=== PATIENT | female | born 1975 | race Caucasian/White ===

== ENCOUNTER → 2017-09-04 16:24 | Outpatient (CLI) | payer OTHER, SELFPAY ==
--- NOTE | 2017-09-04 16:27 | HPBI_ITS ---
MAMMOGRAPHY - BILATERAL SCREENING REASON FOR EXAM: Female, 41 years old. Routine annual screening examination. PERTINENT HISTORY: Aunt with breast cancer. TECHNIQUE: Digital bilateral breast bishop (3D mammographic acquisition) in the CC and MLO projections. 2-D mediolateral oblique (MLO) and craniocaudad (CC) views of both breasts were obtained. CAD: Full Field Digital Mammography with Computer Added Detection was performed. COMPARISON: Comparison is made with prior study dated August 19, 2016 and July 29, 2014. FINDINGS: Breast Composition: The breasts are heterogeneously dense, which may obscure small masses. There are no dominant masses or suspicious calcifications. No other significant abnormalities are identified. There has been no significant change since the prior study. HPBI/SCREENING MAMM (CAD), BILAT IMPRESSION: Stable bilateral screening mammogram. Yearly follow-up mammogram recommended. (A) ASSESSMENT CATEGORY: BIRADS Category 1: Negative. A letter regarding these results will be sent to the patient by the facility within 30 days. Approximately 10% of breast cancers are not detected by mammography. A normal mammogram should not delay biopsy of a clinically suspicious abnormality. [id number] Electronically Signed: Tai Chappell MD at 8:08 EST Tel [phone], Service support ,
== END ==
PROVIDERS: Family Provider Family Medicine; PCP Family Medicine; Visit Provider Family Medicine
DX: Z12.31 Encounter for screening mammogram for malignant neoplasm of breast (principal)
CPT/HCPCS: 77063; 77067

== ENCOUNTER → 2017-10-09 13:41 | Outpatient (CLI) | payer OTHER, SELFPAY ==
--- NOTE | 2017-10-09 13:44 | RAD_ITS ---
STUDY: X-RAY - LUMBAR SPINE REASON FOR EXAM: Female, 41 years old. Radiating low back pain TECHNIQUE: 5 view(s) of the lumbar spine were obtained. COMPARISON: None FINDINGS: Normal lumbar lordosis. There is a dextroscoliosis of the lumbar spine. There is a normal alignment of the vertebrae. Normal vertebral bodies and endplates. Normal disc space heights. The soft tissue structures are unremarkable. RAD/L/S Spine Min 4 Views IMPRESSION: No fracture or aggressive osseous lesion Mild dextroscoliosis Electronically Signed: Keith Valentin MD at 14:24 EDT , Service support ,
== END ==
PROVIDERS: Family Provider Family Medicine; PCP Family Medicine; Visit Provider Chiropractor
DX: M99.03 Segmental and somatic dysfunction of lumbar region (principal); M41.86 Other forms of scoliosis, lumbar region
CPT/HCPCS: 72110

== ENCOUNTER 2018-01-02 16:45 | Outpatient (RCR) | payer OTHER, SELFPAY ==
--- NOTE | 2017-11-15 13:07 | MASS.EVAL ---
Massage Therapy Evaluation: Initial Evaluation Date: 11/14/2017 SUBJECTIVE: Mili is a 42 year old female who was referred to the [facility] facility for a massotherapy evaluation by Dr. Chang with the diagnosis of bursitis and thoracic back pain. Mili presents today with the symptoms of some lower back pain and tension. She reports she is currently receiving chiropractic visits for her hips and back. She reports having minimal limitations during her daily activities. OBJECTIVE: Upon observation Mili has poor posture with her head forward and shoulders forward from the neutral position in sitting and standing. After examination and palpation I found Kezia to have very high muscle tension with tenderness in her sub occipitals, trapezius, rhomboids, scalenes, thoracic paraspinals. Her hips and lumbar region were also tight. The first treatment consisted of a one hour massage to her upper body with myofascial release, muscle stripping, trigger point compression techniques, and cervical manual traction. ASSESSMENT: I feel that she is a good candidate for massotherapy at this time. She had a favorable response to the first treatment with reduction in her muscle aches, pain and tension. She also had improvement in her low back stiffness. PLAN: The plan of care was reviewed with the patient. The patient is to be seen on as needed basis for a total of ten sessions with the recommendation of once every four weeks for a one hour treatment. Rita Dill LMT
--- NOTE | 2018-07-05 11:35 | MASS.DISCH ---
Massage Therapy Discharge Summary: Initial Evaluation: Diagnosis: Back pain Bursitis No. of Visits: Date of last visit: 01/02/2018 This patient is being discharged from our care at the [facility]. Thank you, Jenifer Becerra LMT
== END 2018-01-02 19:00 | disposition home or self-care (01) ==
LOC: MASS 16:45
PROVIDERS: Family Provider Family Medicine; PCP Family Medicine; Visit Provider Family Medicine
DX: M54.6 Pain in thoracic spine (principal); M20.62 Acquired deformities of toe(s), unspecified, left foot
CPT/HCPCS: 97124

== ENCOUNTER → 2018-11-06 13:32 | Outpatient (CLI) | payer OTHER, SELFPAY ==
--- NOTE | 2018-11-06 13:35 | BI_ITS ---
MAMMOGRAPHY - BILATERAL SCREENING 3-D TOMOSYNTHESIS REASON FOR EXAM: Female, 42 years old. Bilateral Screening 3-D tomosynthesis PERTINENT HISTORY: No significant family history. TECHNIQUE: 2-D mammograms and 3-D Tomosynthesis of the breast (s) were performed. CAD was performed. COMPARISON: September 04, 2017. FINDINGS: The breast composition is heterogeneously dense, which may obscure small masses. Scattered benign calcifications are seen. No dense spiculated masses or suspicious microcalcifications are identified. No architectural distortion is identified. There is no skin thickening or retraction. There has been no significant change since the prior study. BI/SCREENING MAMM (CAD), BILAT IMPRESSION: No mammographic signs of malignancy. Routine yearly mammograms recommended. ASSESSMENT CATEGORY: BIRADS Category 2: Benign. A letter regarding these results will be sent to the patient by the facility within 30 days. FOLLOW UP RECOMMENDATION: Yearly follow up mammogram recommended. (A) Approximately 10% of breast cancers are not detected by mammography. A normal mammogram should not delay biopsy of a clinically suspicious abnormality. Electronically Signed: Jacobo Small MD at 15:36 EDT , Service support ,
== END ==
PROVIDERS: Family Provider Family Medicine; PCP Family Medicine; Referring Provider Family Medicine; Visit Provider Family Medicine
DX: Z12.31 Encounter for screening mammogram for malignant neoplasm of breast (principal)
CPT/HCPCS: 77063; 77067

== ENCOUNTER → 2019-01-16 07:06 | Outpatient (CLI) | payer OTHER, SELFPAY ==
[2019-01-16 08:13] LABS: Estradiol 24.3 pg/mL; Follicle Stimulating Hormone 41.7 mIU/mL; Luteinizing Hormone 14.6 mIU/mL; Prolactin 5.3 ng/mL
[2019-01-16 08:47] LABS: Progesterone Level 0.24 ng/mL (See Comment)
== END ==
PROVIDERS: Family Provider Family Medicine; PCP Family Medicine; Referring Provider Family Medicine; Visit Provider Family Medicine
DX: N64.4 Mastodynia (principal); N92.0 Excessive and frequent menstruation with regular cycle
CPT/HCPCS: 36415; 82670; 83001; 83002; 84144; 84146

== ENCOUNTER → 2019-01-30 10:44 | Outpatient (CLI) | payer OTHER, SELFPAY ==
[2019-01-30 12:48] LABS: Hepatitis B Surface Antibody Reactive; Rubella IgG 88.1 IU/mL
[2019-02-01 11:26] LABS: Mumps Antibody,IgG 21.6 AU/mL (Immune >10.9); Rubeola IgG Ab 62.5 AU/mL (Immune >29.9); V-Zoster IgG (Immunity) 341 index (Immune >165)
== END ==
PROVIDERS: Family Provider Family Medicine; PCP Family Medicine; Referring Provider Family Medicine; Visit Provider Family Medicine
DX: Z92.29 Personal history of other drug therapy (principal)
CPT/HCPCS: 36415; 86706; 86735; 86762; 86765; 86787

== ENCOUNTER 2019-12-17 12:17 | Emergency (ER) | payer OTHER, SELFPAY ==
[2019-12-17 12:18] VITALS: BP 125/95; PULSE 94; RESP 15; TEMP 36.6; O2SAT 98; BMI 24.3
--- NOTE | 2019-12-17 12:34 | EKG12_ITS ---
Test Reason : SYNCOPE Blood Pressure : / mmHG Vent. Rate : 084 BPM Atrial Rate : 084 BPM P-R Int : 154 ms QRS Dur : 080 ms QT Int : 378 ms P-R-T Axes : 076 056 060 degrees QTc Int : 446 ms Normal sinus rhythm Normal ECG Confirmed by JENNIFER PORTILLO, HIRA ([id number]), film editor supervisor MYKEL HESS ([id number]) on 12/19/2019 10:42:03 AM Referred By: SHANAE Confirmed By:HIRA RODRIGUEZ MD
--- NOTE | 2019-12-17 12:38 | NURSING ---
NO OLD EKGS
--- NOTE | 2019-12-17 13:00 | ED.DCSUM_ITS ---
History of Present Illness Chief Complaint: Syncope Informant: Patient Onset: Today Narrative: Patient is a 44-year-old female with history of GERD presenting after presyncopal episode at work. Patient works as a home health aide. She states she felt lightheaded after giving her patient a shower and sat down. She started to feel better but then when she was walking out of the house she felt lightheaded again starting to tunnel vision and fell to the ground. She states she remembers following a did not actually lose consciousness. She not hit her head. She notes that she was in the sun and actually was sunburned yesterday. She states for the past 2 weeks has had 2 other episodes when she has been working in her garden when she is felt lightheaded and had to sit down. Is the first time she is had a fall though. Patient states she started to feel better now and does not feel dizzy. She denies any room spinning sensation. She denies associated chest pain, shortness of breath or difficulty breathing. She denies any history of DVT or PE. She is not on any hormonal therapy. She states she is premenopausal so she has irregular menstrual cycles. Patient denies any GI or symptoms. Past Medical History - Allergies and Home Meds Allergies/Adverse Reactions: Allergies venom-honey bee [bee venom (honey bee)] Allergy (Verified 12/17/19 12:18) Swelling Primary Care Physician: Juanito Chang MD [Primary Care Provider] - Past Medical History: - - GERD Surgical History: noncontributory Smoking Status: Never smoker Review of Systems General: Reports: - - Lightheaded. Denies: Chills, Fever, Sweats Eyes: Denies: Visual changes - bilaterally, Diplopia ENT: Denies: Rhinorrhea, Sore throat Cardiovascular: Denies: Chest pain, Palpitations Respiratory: Denies: Dyspnea, Cough, Dyspnea on exertion Gastrointestinal: Denies: Abdominal pain, Nausea, Vomiting, Diarrhea, Melena, Hematochezia Genitourinary: Denies: Dysuria, Hematuria, Frequency Musculoskeletal: Denies: Back pain, Extremity Pain Skin: Denies: Rash, Wounds Neurological: Denies: Headache, Weakness, Numbness Physical Exam Vital Signs/Narrative: Vital Signs Temp Pulse Resp BP Pulse Ox 12/17/19 12:18 97.8 F 94 15 125/95 H 98 Inital Vital Signs reviewed: Yes General: Well nourished, Well developed, No Acute Distress Head: Normocephalic, Atraumatic Eyes: Perrl, EOMI ENT: Moist mucous membranes, No rhinorrhea, TM's clear Neck: Supple, Nontender, No JVD Cardiovascular: Regular rate, Regular rhythm, No murmurs Respiratory: No distress, CTA bilaterally, Chest nontender Abdomen: Soft, Nontender, Nondistended, Normal bowel sounds Back: Nontender, Normal Inspection Extremities: Nontender, No edema Skin: Normal color, No rash, - - mild Sunburn on the upper chest and arms. Negative for: Pallor Neurological: Alert, Oriented x3, Cranial nerves II-XII grossly intact, Normal Strength, Normal Sensation Psychological: Normal affect, Normal Mood Diagnostic/Tx/Re-eval Chest X-Ray - ED: 2 View, Read by ED Physician, Read by Radiologist, No Acute Disease Clinical Impression(s) from Imaging Studies Chest X-Ray 12/17/19 13:11 IMPRESSION: Normal x-ray examination of the chest. Electronically Signed: Tai Ta, at 13:26 EDT , Service support , Laboratory Data 12/17/19 12/17/19 12/17/19 12:55 12:55 12:55 WBC 14.1 H RBC 4.78 Hgb 14.2 Hct 43.6 MCV 91.2 MCH 29.7 MCHC 32.6 RDW Std Deviation 40.6 RDW Coeff of Sudhir 12.1 Plt Count 229 MPV 12.4 H Immature Gran % (Auto) 0.500 Neut % (Auto) 81.9 H Lymph % (Auto) 10.4 L Branch % (Auto) 6.5 Eos % (Auto) 0.3 Baso % (Auto) 0.4 Absolute Neuts (auto) 11.5 H Absolute Lymphs (auto) 1.47 Nucleated RBC % 0 Sodium 138 Potassium 3.5 Chloride 99 Carbon Dioxide 29.0 Anion Gap 10 BUN 15 Creatinine 0.85 Estim Creat Clear Calc 71.41 Est GFR (MDRD) Af Amer 92 Est GFR (MDRD) Non-Af 76 BUN/Creatinine Ratio 17.6 Glucose 105 Calcium 9.5 Troponin I < 0.015 Urine Color Urine Clarity Urine pH Ur Specific [place] Urine Protein Urine Glucose (UA) Urine Ketones Urine Occult Blood Urine Nitrite Urine Bilirubin Urine Urobilinogen Ur Leukocyte Esterase Urine RBC Urine WBC Ur Squamous Epith Cells Urine Bacteria Urine Mucus Urine Test Negative 12/17/19 12:55 WBC RBC Hgb Hct MCV MCH MCHC RDW Std Deviation RDW Coeff of Sudhir Plt Count MPV Immature Gran % (Auto) Neut % (Auto) Lymph % (Auto) Branch % (Auto) Eos % (Auto) Baso % (Auto) Absolute Neuts (auto) Absolute Lymphs (auto) Nucleated RBC % Sodium Potassium Chloride Carbon Dioxide Anion Gap BUN Creatinine Estim Creat Clear Calc Est GFR (MDRD) Af Amer Est GFR (MDRD) Non-Af BUN/Creatinine Ratio Glucose Calcium Troponin I Urine Color Yellow Urine Clarity Clear Urine pH 5.0 Ur Specific [place] 1.020 Urine Protein 30 H Urine Glucose (UA) Normal Urine Ketones 5 H Urine Occult Blood 25 H Urine Nitrite Negative Urine Bilirubin 1 H Urine Urobilinogen Normal Ur Leukocyte Esterase 25 H Urine RBC 0 SEEN Urine WBC 0-5 SEEN Ur Squamous Epith Cells 5-10 SEEN Urine Bacteria RARE Urine Mucus 2+ Urine Test - Rhythm Strip Rhythm Strip: Sinus Rhythm Rate: 84 Ectopy: None - EKG Initial EKG Interpretation: Sinus Rhythm, - - Normal sinus rhythm at a rate of 84 Normal intervals Normal axis Normal ST segments - Medical Decision Making She is evaluated after an episode of presyncope. Since patient did not lose consciousness and was able to control her fall I do not think it was a true syncopal episode. She had significant sun exposure yesterday and is otherwise well-appearing. She does not have any medical history. She is PE RC negative and I do not suspect a PE as a cause of her symptoms. EKG is normal as well as her troponin. Chest x-rays not show any acute process. She not having significant electrolyte abnormalities and has a normal hemoglobin and platelets. She does have a mild leukocytosis but do not have a source of infection.Urinalysis shows 25 leukoesterase however is contaminated with squamous cells and does not shows rare bacteria. There is 0-5 white blood cells. I do not suspect UTI. Patient will be discharged home after IV fluids. She did have ketones in her urine. She is orthostatic negative however. She discharged to follow-up with her primary care doctor. She is cleared to return to work from my standpoint. Patient is counseled on signs and symptoms requiring return to the emergency room. Patient verbalizes agreement and understand this plan. Patient discharged home in stable and improved condition. ED Disposition - Plan for ED Patient: Disposition: Home or Assisted Living Diagnosis: Syncope Instructions: ED Near Syncope Vasovagal Referrals: Juanito Chang MD [Primary Care Provider] -
[2019-12-17 13:02] VITALS: BP 105/80; BP 113/80; BP 116/83; PULSE 76; PULSE 84; PULSE 95
[2019-12-17 13:03] LABS: Red Blood Cells-Urine 0 SEEN /hpf (0-5)
[2019-12-17 13:05] LABS: Absolute Lymphocyte Count 1.47 X10^3/uL (0.83-4.51); Absolute Neutrophil Count 11.5 X10^3/uL (2.0-7.7); Basophil# 0.05 X10^3/uL; Basophil% 0.4 % (0-1); Eosinophil# 0.04 X10^3/uL; Eosinophils% 0.3 % (0-5); Hematocrit 43.6 % (37-47); Hemoglobin 14.2 g/dL (12.0-15.0); Lymphocyte # 1.47 X10^3/ul (4.0); Lymphocyte % 10.4 % (19-41); Mean Corp Hgb Conc 32.6 g/dL (32-36); Mean Corpuscular Hgb 29.7 pg (27.0-32.0); Mean Corpuscular Volume 91.2 fL (81-99); Mean Platelet Vol. 12.4 fl (6.2-12.0); Monocyte# 0.92 X10^3/uL; Monocyte% 6.5 % (0-10); NRBC Flagged by Analyzer 0 % (0-5); Neutrophil # 11.53 X10^3/uL (2.7-7.7); Neutrophil % 81.9 % (47-70); Platelet Count 229 K/mm3 (150-450); RBC Distribution Width CV 12.1 % (11.6-14.6); RBC Distribution Width SD 40.6 fl (35.1-43.9); Red Blood Count 4.78 M/mm3 (4.2-5.4); White Blood Count 14.1 K/mm3 (4.4-11.0)
[2019-12-17 13:07] LABS: Color, Urine Yellow (Yellow); Glucose, Dipstick Normal (Normal); Ketone-Dipstick 5 mg/dl (Negative); Leukocyte Esterase-Dipstick 25 /ul (Negative); Nitrite-Dipstick Negative (Negative); Occult Blood-Urine 25 /ul (Negative); Protein-Dipstick 30 mg/dl (Negative); Urine Clarity Clear (Clear); Urine Urobilinogen Normal (Normal)
[2019-12-17 13:10] LABS: Internal QC Validated? YES +Cl - CLEAR BKGD; Pregnancy, Urine Negative Negative
[2019-12-17 13:11] LABS: Urine Bilirubin Dipstick 1 mg/dL (Negative)
--- NOTE | 2019-12-17 13:11 | RAD_ITS ---
STUDY: X-RAY CHEST REASON FOR EXAM: Female, 44 years old. Syncope TECHNIQUE: PA and lateral views of the chest. COMPARISON: None. FINDINGS: EKG electrodes are seen. The lungs are clear and expanded. Scattered calcified granulomas. There is no demonstrated pleural abnormality. Normal size heart. Normal mediastinum and stepan. Normal visualized pulmonary arteries. Normal visualized aortic arch and descending thoracic aorta. Normal visualized thoracic spine. Normal visualized ribs, clavicles, and shoulders. There is no demonstrated abnormality of the visualized soft tissue structures of the upper abdomen. RAD/Chest PA and Lateral IMPRESSION: Normal x-ray examination of the chest. Electronically Signed: Tai Chappell, at 13:26 EDT , Service support ,
[2019-12-17 13:18] LABS: White Blood Cells 0-5 SEEN /hpf (0-5)
[2019-12-17 13:19] LABS: Bacteria RARE /hpf (None Seen); Mucous, Urine 2+ /hpf (<or=2+); Squamous Epithelial Cells - UA 5-10 SEEN /hpf (5-10)
[2019-12-17 13:22] LABS: Anion Gap 10 (5-15); BUN 15 mg/dL (7-18); BUN/Creat Ratio 17.6 RATIO (10-20); Calcium,Total 9.5 mg/dL (8.5-10.1); Chloride 99 mmol/L (98-107); Creatinine, Serum 0.85 mg/dL (0.55-1.02); EST Glomerular Filtration Rate 76 mL/min (>60); Est Glom Filt Rate - Afr Amer 92 mL/min (>60); Estimated Creatinine Clearance 71.41 ml/min; Glucose 105 mg/dL (74-106); Potassium 3.5 mmol/L (3.5-5.1); Sodium Level 138 mmol/L (136-145)
[2019-12-17 14:11] VITALS: BP 109/76; PULSE 84; RESP 14; O2SAT 99
== END 2019-12-17 14:19 | disposition home or self-care (01) ==
PROVIDERS: Emergency Provider Emergency Medicine; PCP Family Medicine
DX: R55 Syncope and collapse (principal); K21.9 Gastro-esophageal reflux disease without esophagitis
CPT/HCPCS: 71046; 80048; 81001; 81025; 84484; 85025; 93005; 99285; A4216

== ENCOUNTER 2020-04-13 11:58 | Outpatient (RCR) | payer MEDICARE, SELFPAY ==
[2020-03-24 16:41] VITALS: BMI 24.3
== END 2020-04-13 12:00 | disposition home or self-care (01) ==
LOC: EMPH 11:58
PROVIDERS: Referring Provider Family Medicine Geriatric Medicine; Visit Provider Family Medicine Geriatric Medicine
DX: Z11.59 Encounter for screening for other viral diseases (principal)
CPT/HCPCS: 87635; U0003

== ENCOUNTER 2020-05-14 08:22 | Outpatient (RCR) | payer MEDICARE, SELFPAY ==
[2020-03-24 16:41] VITALS: BMI 24.3
== END 2020-05-16 23:59 ==
LOC: EMPH 08:22
PROVIDERS: Referring Provider Family Medicine Geriatric Medicine; Visit Provider Family Medicine Geriatric Medicine
DX: Z03.818 Encounter for observation for suspected exposure to other biological agents ruled out (principal)
CPT/HCPCS: 87426

== ENCOUNTER 2020-06-10 15:56 | Outpatient (RCR) | payer OTHER, SELFPAY ==
[2020-03-24 16:41] VITALS: BMI 24.3
== END 2020-06-15 23:59 ==
LOC: EMPH 15:56
PROVIDERS: Referring Provider Family Medicine Geriatric Medicine; Visit Provider Family Medicine Geriatric Medicine
DX: Z03.818 Encounter for observation for suspected exposure to other biological agents ruled out (principal)
CPT/HCPCS: 87426

== ENCOUNTER 2020-07-15 14:04 | Outpatient (RCR) | payer OTHER, SELFPAY ==
[2020-03-24 16:41] VITALS: BMI 24.3
== END 2020-07-16 23:59 ==
LOC: EMPH 14:04
PROVIDERS: Referring Provider Family Medicine Geriatric Medicine; Visit Provider Family Medicine Geriatric Medicine
DX: Z03.818 Encounter for observation for suspected exposure to other biological agents ruled out (principal)
CPT/HCPCS: 87426

== ENCOUNTER 2020-08-14 14:17 | Outpatient (RCR) | payer OTHER, SELFPAY ==
[2020-03-24 16:41] VITALS: BMI 24.3
== END 2020-08-16 23:59 ==
LOC: EMPH 14:17
PROVIDERS: Referring Provider Family Medicine Geriatric Medicine; Visit Provider Family Medicine Geriatric Medicine
DX: Z03.818 Encounter for observation for suspected exposure to other biological agents ruled out (principal)
CPT/HCPCS: 87426

== ENCOUNTER 2020-09-11 14:44 | Outpatient (RCR) | payer OTHER, SELFPAY ==
[2020-03-24 16:41] VITALS: BMI 24.3
== END 2020-09-13 23:59 ==
LOC: EMPH 14:44
PROVIDERS: Referring Provider Family Medicine Geriatric Medicine; Visit Provider Family Medicine Geriatric Medicine
DX: Z03.818 Encounter for observation for suspected exposure to other biological agents ruled out (principal)
CPT/HCPCS: 87426

== ENCOUNTER 2020-10-07 14:05 | Outpatient (RCR) | payer OTHER, SELFPAY ==
[2020-03-24 16:41] VITALS: BMI 24.3
== END 2020-10-14 23:59 ==
LOC: EMPH 14:05
PROVIDERS: Referring Provider Family Medicine Geriatric Medicine; Visit Provider Family Medicine Geriatric Medicine
DX: Z03.818 Encounter for observation for suspected exposure to other biological agents ruled out (principal)
CPT/HCPCS: 87426

== ENCOUNTER 2020-11-13 13:54 | Outpatient (RCR) | payer OTHER, SELFPAY ==
[2020-03-24 16:41] VITALS: BMI 24.3
== END 2020-11-13 23:59 ==
LOC: EMPH 13:54
PROVIDERS: Referring Provider Family Medicine Geriatric Medicine; Visit Provider Family Medicine Geriatric Medicine
DX: Z03.818 Encounter for observation for suspected exposure to other biological agents ruled out (principal)
CPT/HCPCS: 87426

== ENCOUNTER 2020-12-08 13:41 | Outpatient (RCR) | payer OTHER, SELFPAY ==
[2020-03-24 16:41] VITALS: BMI 24.3
== END 2020-12-14 23:59 ==
LOC: EMPH 13:41
PROVIDERS: Referring Provider Family Medicine Geriatric Medicine; Visit Provider Family Medicine Geriatric Medicine
DX: Z03.818 Encounter for observation for suspected exposure to other biological agents ruled out (principal)
CPT/HCPCS: 87426

== ENCOUNTER 2021-01-12 10:58 | Outpatient (RCR) | payer OTHER, SELFPAY ==
[2020-03-24 16:41] VITALS: BMI 24.3
== END 2021-01-13 23:59 ==
LOC: EMPH 10:58
PROVIDERS: PCP Family Medicine; Referring Provider Family Medicine Geriatric Medicine; Visit Provider Family Medicine Geriatric Medicine
DX: Z03.818 Encounter for observation for suspected exposure to other biological agents ruled out (principal)
CPT/HCPCS: 87426

== ENCOUNTER 2021-02-12 13:00 | Outpatient (RCR) | payer OTHER, SELFPAY ==
[2020-03-24 16:41] VITALS: BMI 24.3
== END 2021-02-12 16:00 | disposition home or self-care (01) ==
LOC: EMPH 13:00
PROVIDERS: PCP Family Medicine; Referring Provider Family Medicine Geriatric Medicine; Visit Provider Family Medicine Geriatric Medicine
DX: Z03.818 Encounter for observation for suspected exposure to other biological agents ruled out (principal)
CPT/HCPCS: 87426

== ENCOUNTER 2021-03-16 12:08 | Outpatient (RCR) | payer OTHER, SELFPAY ==
[2020-03-24 16:41] VITALS: BMI 24.3
== END 2021-03-16 23:59 ==
LOC: EMPH 12:08
PROVIDERS: PCP Family Medicine; Referring Provider Family Medicine Geriatric Medicine; Visit Provider Family Medicine Geriatric Medicine
DX: Z03.818 Encounter for observation for suspected exposure to other biological agents ruled out (principal)
CPT/HCPCS: 87426

== ENCOUNTER 2021-04-15 13:09 | Outpatient (RCR) | payer OTHER, SELFPAY ==
[2021-03-17 00:29] VITALS: BMI 24.3
== END 2021-04-15 23:59 ==
LOC: EMPH 13:09
PROVIDERS: PCP Family Medicine; Referring Provider Family Medicine Geriatric Medicine; Visit Provider Family Medicine Geriatric Medicine
DX: Z03.818 Encounter for observation for suspected exposure to other biological agents ruled out (principal)
CPT/HCPCS: 87426

== ENCOUNTER 2021-05-27 14:38 | Outpatient (RCR) | payer OTHER, SELFPAY ==
[2021-05-17 00:19] VITALS: BMI 24.3
== END 2021-06-15 23:59 ==
LOC: EMPH 14:38
PROVIDERS: PCP Family Medicine; Referring Provider Family Medicine Geriatric Medicine; Visit Provider Family Medicine Geriatric Medicine
DX: Z03.818 Encounter for observation for suspected exposure to other biological agents ruled out (principal)
CPT/HCPCS: 87426

== ENCOUNTER 2021-07-15 15:16 | Outpatient (RCR) | payer OTHER, SELFPAY ==
[2021-06-16 00:24] VITALS: BMI 24.3
== END 2021-07-16 23:59 ==
LOC: EMPH 15:16
PROVIDERS: PCP Family Medicine; Referring Provider Family Medicine Geriatric Medicine; Visit Provider Family Medicine Geriatric Medicine
DX: Z03.818 Encounter for observation for suspected exposure to other biological agents ruled out (principal)
CPT/HCPCS: 87426; 87635; U0003; U0005

== ENCOUNTER 2021-08-30 14:01 | Outpatient (RCR) | payer OTHER, SELFPAY ==
[2021-07-17 00:23] VITALS: BMI 24.3
== END 2021-09-13 23:59 ==
LOC: EMPH 14:01
PROVIDERS: PCP Family Medicine; Referring Provider Family Medicine Geriatric Medicine; Visit Provider Family Medicine Geriatric Medicine
DX: Z03.818 Encounter for observation for suspected exposure to other biological agents ruled out (principal)
CPT/HCPCS: 87426

== ENCOUNTER → 2022-03-04 | Outpatient (CLI) | payer OTHER, SELFPAY ==
--- NOTE | 2022-03-04 08:20 | BI_ITS ---
MAMMOGRAPHY - BILATERAL SCREENING REASON FOR EXAM: Female, 46 years old. Routine annual screening examination. PERTINENT HISTORY: Non-contributory. TECHNIQUE: Digital bilateral breast carlos (3D mammographic acquisition) in the CC and MLO projections. 2-D mediolateral oblique (MLO) and craniocaudad (CC) views of both breasts were obtained. CAD: Full Field Digital Mammography with Computer Added Detection was performed. COMPARISON: Comparison is made with prior study dated 11/06/2018 and 09/04/2017. FINDINGS: Breast Composition: The breasts are heterogeneously dense, which may obscure small masses. There are no dominant masses or suspicious calcifications. Small benign-appearing right axillary lymph nodes. No other significant abnormalities are identified. There has been no significant change since the prior study. BI/SCRN MAMM (CAD)W/CARLOS BILAT IMPRESSION: Stable bilateral screening mammogram. Yearly follow-up mammogram recommended. (A) ASSESSMENT CATEGORY: BIRADS Category 2: Benign. A letter regarding these results will be sent to the patient by the facility within 30 days. Approximately 10% of breast cancers are not detected by mammography. A normal mammogram should not delay biopsy of a clinically suspicious abnormality. [id number] Electronically Signed: Tai Chappell MD at 9:17 EDT ,
== END | disposition home or self-care (01) ==
PROVIDERS: PCP Family Medicine; Visit Provider Family Medicine
DX: Z12.31 Encounter for screening mammogram for malignant neoplasm of breast (principal)
CPT/HCPCS: 77063; 77067

== ENCOUNTER → 2023-04-27 | Outpatient (CLI) | payer OTHER, SELFPAY ==
--- NOTE | 2023-04-27 14:05 | BI_ITS ---
MAMMOGRAPHY - BILATERAL SCREENING REASON FOR EXAM: Female, 47 years old. Routine annual screening examination. PERTINENT HISTORY: Non-contributory. TECHNIQUE: Digital bilateral breast carlos (3D mammographic acquisition) in the CC and MLO projections. 2-D mediolateral oblique (MLO) and craniocaudad (CC) views of both breasts were obtained. CAD: Full Field Digital Mammography with Computer Added Detection was performed. COMPARISON: Comparison is made with prior study dated March 04, 2022 and November 06, 2018. FINDINGS: Breast Composition: The breasts are heterogeneously dense, which may obscure small masses. There are no dominant masses or suspicious calcifications. Stable small benign-appearing bilateral axillary lymph nodes. No other significant abnormalities are identified. There has been no significant change since the prior study. BI/SCRN MAMM (CAD)W/CARLOS BILAT IMPRESSION: Stable bilateral screening mammogram. Yearly follow-up mammogram recommended. (A) ASSESSMENT CATEGORY: BIRADS Category 2: Benign. A letter regarding these results will be sent to the patient by the facility within 30 days. Approximately 10% of breast cancers are not detected by mammography. A normal mammogram should not delay biopsy of a clinically suspicious abnormality. [id number] Electronically Signed: Tai Chappell MD at 15:04 EDT ,
== END | disposition home or self-care (01) ==
LOC: OPBI 14:04
PROVIDERS: PCP Family Medicine; Referring Provider Family Medicine; Visit Provider Family Medicine
DX: Z12.31 Encounter for screening mammogram for malignant neoplasm of breast (principal)
CPT/HCPCS: 77063; 77067

== ENCOUNTER → 2023-06-05 | Outpatient (CLI) | payer OTHER, SELFPAY ==
[2023-06-05 09:03] LABS: AST(SGOT) 22 U/L (15-37); Alanine Aminotransfer ALT/SGPT 28 U/L (13-56); Cholesterol 153 mg/dL (200); High Density Lipoprotein 78 mg/dL; Triglycerides 88 mg/dL; Very Low Density Lipoprotein 18 mg/dL (5-40)
== END | disposition home or self-care (01) ==
LOC: LAB 07:37
PROVIDERS: PCP Family Medicine; Referring Provider Family Medicine; Visit Provider Family Medicine
DX: E78.00 Pure hypercholesterolemia, unspecified (principal)
CPT/HCPCS: 36415; 80061; 84450; 84460

== ENCOUNTER → 2024-05-13 | Outpatient (CLI) | payer OTHER, SELFPAY ==
--- NOTE | 2024-05-13 15:15 | RAD_ITS ---
INDICATION: LEFT SCIATICA EXAMINATION/TECHNIQUE: X-RAY - XR Spine Lumbar Min 4 Views COMPARISON: Prior study dated: 10/09/2017 FINDINGS: VERTEBRAE: Preserved vertebral body height. No fracture. No spondylolisthesis. Preservation of the normal lumbar lordosis. Spina bifida at L5. DISCS: Mild narrowing of L3-4 disc space. INCLUDED ABDOMEN: Included bowel gas pattern is non-obstructive. RAD/L/S Spine Min 4 Views IMPRESSION: Mild narrowing of L3-L4 disc space. Electronically Signed: Tim Lubin MD at 12:20 EDT ,
== END | disposition home or self-care (01) ==
LOC: RAD 15:08
PROVIDERS: PCP Family Medicine; Referring Provider Family Medicine; Visit Provider Family Medicine
DX: M54.32 Sciatica, left side (principal)
CPT/HCPCS: 72110

== ENCOUNTER → 2024-05-13 | Outpatient (CLI) | payer OTHER, SELFPAY ==
--- NOTE | 2024-05-13 14:41 | BI_ITS ---
MAMMOGRAPHY - BILATERAL SCREENING REASON FOR EXAM: Female, 48 years old. Routine annual screening examination. PERTINENT HISTORY: Non-contributory. TECHNIQUE: Digital bilateral breast carlos (3D mammographic acquisition) in the CC and MLO projections. 2-D mediolateral oblique (MLO) and craniocaudad (CC) views of both breasts were obtained. CAD: Full Field Digital Mammography with Computer Added Detection was performed. COMPARISON: Comparison is made with prior study April 27, 2023 and March 04, 2022. FINDINGS: Breast Composition: The breasts are heterogeneously dense, which may obscure small masses. There are no dominant masses or suspicious calcifications. Stable small bilateral axillary lymph nodes. No other significant abnormalities are identified. There has been no significant change since the prior study. BI/SCRN MAMM (CAD)W/CARLOS BILAT IMPRESSION: Stable bilateral screening mammogram. Yearly follow-up mammogram recommended. (A) ASSESSMENT CATEGORY: BIRADS Category 2: Benign. A letter regarding these results will be sent to the patient by the facility within 30 days. Approximately 10% of breast cancers are not detected by mammography. A normal mammogram should not delay biopsy of a clinically suspicious abnormality. [id number] Electronically Signed: Tai Chappell MD at 15:29 EDT ,
== END | disposition home or self-care (01) ==
LOC: OPBI 14:39
PROVIDERS: PCP Family Medicine; Referring Provider Family Medicine; Visit Provider Family Medicine
DX: Z12.31 Encounter for screening mammogram for malignant neoplasm of breast (principal)
CPT/HCPCS: 77063; 77067

== ENCOUNTER → 2024-06-27 | Outpatient (CLI) | payer OTHER, SELFPAY ==
--- NOTE | 2024-06-27 13:25 | BD_ITS ---
STUDY: DUAL ENERGY X-RAY ABSORPTIOMETRY / DXA REASON FOR EXAM: Female, 48 years old. [id number] TECHNIQUE: Bone Mineral Density (BMD) measurements of lumbar spine and bilateral hips were obtained. COMPARISON: None. FINDINGS: Lumbar Spine (L1-L4): g/cm2 (0.910) / T-score (-1.2) / Z-score (-0.5) Findings are suggestive of osteopenia with a low fracture risk. Left Femur Total: g/cm2 (0.765) / T-score (-1.5) / Z-score (-1.0) Left Femoral Neck: g/cm2 (0.658) / T-score (-1.7) / Z-score (-0.9) Right Femur Total: g/cm2 (0.773) / T-score (-1.4) / Z-score (-0.9) Right Femoral Neck: g/cm2 (0.641) / T-score (-1.9) / Z-score (-1.1) BD/Dexa Bone Density Study IMPRESSION: The patient is considered osteopenic as outlined below according to World Roman Organization (WHO) criteria with a moderate fracture risk. Reference Information: The T-score is the number of standard deviations above or below the standard which is normal for young adults at their peak bone mineral density. The World Health Organization (WHO) interprets the T-scores as follows: Above -1 Normal bone density Between -1 and -2.5 Osteopenia Equal to / or below -2.5 Osteoporosis As a practical clinical guideline, osteopenia may be graded as follows: Mild -1 through -1.5 Moderate -1.6 through -2.0 Severe -2.1 through -2.4 The Z-score is the number of standard deviations above or below age-matched controls. A Z-score of less than -1.5 would be considered abnormal. References: 1. NIH Osteoporosis and Related Bone Diseases www osteo.org 2. International Society for Clinical Densitometry www iscd.org 3. National Osteoporosis Foundation www nof.org Electronically Signed: Tai Chappell MD at 10:28 EST ,
== END | disposition home or self-care (01) ==
LOC: OPBD 13:23
PROVIDERS: PCP Family Medicine; Referring Provider Family Medicine; Visit Provider Family Medicine
DX: Z78.0 Asymptomatic menopausal state (principal)
CPT/HCPCS: 77080

== ENCOUNTER 2024-07-02 17:00 | Outpatient (RCR) | payer OTHER, SELFPAY ==
--- NOTE | 2024-06-06 14:44 | HP.PTEVAL_ITS ---
Patient's Visit Information Visit Information Visit Information: ADRIÁN CAROLINA is a 48 year old F referred to Physical Therapy by Dr. Juanito Chang MD with a diagnosis of L sided sciatica. Date of Evaluation: 06/06/24 Physical Therapist: Lalo Cosby, DPT, OCS, CSCS Visit Plan Frequency: 2x /Week Duration: 4-6 Weeks Plan: 2x/week for 4-6 weeks as needed(start 3): IE: taugth ppu 8x /day and itb stretch 30 5x daily and activity modifcaiton adn posture... avoid left sidelying use pillow between knees always use a towel roll when sitting minimize sitting keep back moving if have to sit long time Treat with : PPU and Katya ext progression, PA mobs to lower lumbar, core and postural strength to HEP, LB ROM progression to yoga stretches, HS stretch May use TENS and ice if flared up. Subjective Subjective: Pain L hip down to toes and tingly. Intermittently. present for a couple years. Sitting is the biggest problems and then trying to get up. Driving to [employer] is miserable. has bursitis in L hip also. Tylenol now and then. Now has script for baclofen and pain. Sometimes it is not a problem. 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 LB hurts also sometimes. Bending the wrong way flares it up. Needs to bend at knees instead of back. Basic aDLs all I No regular ex except walking dog which she can do unless flared up then would not walk the dog. Hobbies: gardening but can be worse, used raise bed this year.. Camping and is able to do that. Sleeping: wakes up if in pain. L bursitis can flare up at position changes. Pain LBP into L leg: Pain Intensity (Out of 10): 0 Pain Intensity Range: 0, 3 and 5 Objective Objective: Walks I into PT without pain today. trasnfers chair and bed I, no pain, steps reciprocally without pain. Lumbar AROM is minimally limited in extension with slight R deviation, SB are full, flexion is full, no hesitation today. Straigther after repeated extension. Posture is flat lordosis and forward head. ITB and HS mod tight B tender to palpation PA pressure L5 and GT L. reflexes 2/3 patella and achilles B sensation LE WNL to gross light touch B LE. strength hips 3+, knees 4 and ankles 4 without myotomal problems. Balance/Special Test Scores Lower Extremity Functional Score: 67 Goals Goal 1:: Full lumbar AROM without pain or deviaiton Goal Time Frame: 2-4 Weeks Goal 2:: I appropriate HEP to limit future problems including stretch, ROM, strength adn body mechanics. Goal Time Frame: 4-6 Weeks Goal 3:: Pt fel 90% better in overall pain and ability levels Goal Time Frame: 4-6 Weeks Goal 4:: sit for 1 hour without difficulty getting up Goal Time Frame: 4-6 Weeks Rehabilitation Potential Physical Therapy Diagnosis: Intermittent LBP limiting funcitona nd comfort Rehabilitation Potential: Good Anticipated Interventions Patient/Client Instruction: Educate patient on: Condition and Plan of Care For the Purpose of:: To decrease pain, To increase ROM, To improve nutrient delivery to tissue, To improve muscle performance and motor function and To increase tolerance to activity/condition/position Therapeutic Exercise to Include: Strength training, Body mechanics, Postural training, Flexibilty training, Passive ROM, Active ROM, Dynamic Lumbar Stabilization and Katya Exercises For the Purpose of:: To decrease pain, To increase ROM, To improve nutrient delivery to tissue, To improve muscle performance and motor function, To increase tolerance to activity/condition/position and To improve gait and locomotor functions Manual Therapy Techniques to Include: Mobilization and Passive ROM For the Purpose of:: To increase ROM TENS: Yes Cryotherapy (ice pack, ice massage): Yes For the Purpose of:: To decrease pain, To decrease swelling/inflammation and To improve nutrient delivery to tissue Text: Thank you for the opportunity to evaluate your patient. For Medicare and Medicare HMO plans, please review the plan of care and approve it. It will need to be FAXED BACK to us at [phone] for Medicare purposes. For Medicare only, by signing this I certify the plan of care. Please let me know if there are questions or concerns regarding this plan of care. Physician Signature: Date:
--- NOTE | 2024-07-02 17:44 | HP.PTDCSUM ---
Discharge Summary D/C summary: It has been my pleasure to treat ADRIÁN CAROLINA referred by Dr. Juanito Chang MD, with the diagnosis of L sided sciatica for a total of 6 visit(s). Discharge Date: 07/02/24 Please see the following information for a summary of their discharge status. Subjective Subjective: No pain lately. Feels like she sits better and less duration. Stretching during the day. 0/10 today. Sitting for 2 hrs with just slight stiffness. No leg symptoms. Activities normal. Home exercises are good. Pain LBP into L leg: Pain Intensity (Out of 10): 0 Overall Improvement % Improvement: 100 Objective Objective/Function: Good lumbar ROM without deviations today or pain. Walking nomral and transitioning normal. sits without VC with decent posture and exits chair easily. Goals Goal 1:: Full lumbar AROM without pain or deviaiton Goal Progress: Goal Met Goal 2:: I appropriate HEP to limit future problems including stretch, ROM, strength adn body mechanics. Goal Progress: Goal Met Goal 3:: Pt fel 90% better in overall pain and ability levels Goal Progress: Goal Met Goal 4:: sit for 1 hour without difficulty getting up Goal Progress: Goal Met Plan Plan: d/c to HEP D/C Information Discharge Comments: Extension exercises were helpful and she is 100% better. d/c sentence: If there are questions or concerns regarding this patient's physical therapy, please feel free to call me at [phone]. Thank you for the referral of this patient. Sincerely, Lalo Cosby, DPT, OCS, CSCS Balance/Gait/Functional tests Balance/Special Test Scores Oswestry Low Back Score: 1 Lower Extremity Functional Score: 67 Improvement % Improvement: 100
== END 2024-07-02 19:00 | disposition home or self-care (01) ==
LOC: PT 17:00
PROVIDERS: PCP Family Medicine; Referring Provider Family Medicine; Visit Provider Family Medicine
DX: M54.32 Sciatica, left side (principal); M47.26 Other spondylosis with radiculopathy, lumbar region
CPT/HCPCS: 97110; 97161; 97530